=== PATIENT | female | born 1965 | race African-American/Black ===

== ENCOUNTER 2016-11-23 10:48 | Emergency (ER) | payer OTHER ==
[~2016-11-23] VITALS: Ht 154.9 cm; Wt 106.0 kg
[2016-11-23 12:38] LABS: BASOPHILS % 0.4 % (0.0-2.0); EOSINOPHILS % 0.8 % (0.0-5.0); HEMATOCRIT. 42.9 % (36.0-48.0); HEMOGLOBIN. 14.1 g/dL (12.0-16.0); LYMPHOCYTES % 18.5 % (20.0-50.0); MEAN CORPUSCULAR HEMOGLOBIN 28.4 pg (28.0-32.0); MEAN CORPUSCULAR VOLUME 86.3 fL (81.0-99.0); MEAN PLATELET VOLUME 11.4 fl (7.4-10.4); MONOCYTES % 9.3 % (2.0-8.0); PLATELET 141 x1000/uL (130-400); RED BLOOD CELL COUNT 4.97 mill/uL (4.2-5.4)
[2016-11-23 12:53] LABS: CARBON DIOXIDE 27 mEq/L (21-32); CHLORIDE 102 mEq/L (98-107)
[2016-11-23 15:29] VITALS: BP 119/70
== END 2016-11-23 17:01 | disposition home or self-care (01) ==
LOC: ER 11:02
DX: K59.09 Other constipation (principal)
CPT/HCPCS: 36415; 74000; 80053; 85025; 99285; Z7610